=== PATIENT | male | born 1960 ===

== ENCOUNTER 2024-03-14 14:51 | Outpatient (OUT) | payer SELFPAY | END 2024-03-14 14:52 | disposition home or self-care (01) | LOC: PST 14:52 | PROVIDERS: Visit Provider Surgery | DX: Z01.818 Encounter for other preprocedural examination (principal); K21.9 Gastro-esophageal reflux disease without esophagitis; R68.81 Early satiety ==

== ENCOUNTER 2024-03-23 07:45 | Day surgery (SDC) | payer OTHER, SELFPAY ==
--- NOTE | 2024-03-23 | OP_ITS ---
OPERATION DATE: 03/23/2024 PREOPERATIVE DIAGNOSIS: Worsening gastroesophageal reflux disease, early satiety. POSTOPERATIVE DIAGNOSIS: Moderate sized hiatal hernia, as well as mild antral gastritis and distal esophagitis, linear. PROCEDURE: EGD with antral biopsy and biopsy of distal esophagus esophagitis. SURGEON: Sarbjit Granda M.D. ANESTHESIA: Monitored anesthesia care. ESTIMATED BLOOD LOSS: Less than 2 mL. INDICATIONS AND CONSENT: Patient is a 63-year-old male with history of worsening gastroesophageal reflux disease, despite daily proton pump inhibitor. He also has some early satiety. Indications, risks, benefits, alternatives of proceeding with EGD were explained extensively to the patient, including the risks of bleeding, aspiration, esophageal/gastric/duodenal perforation or anesthetic complications. All of his questions were answered. Informed consent was obtained. PROCEDURE: Patient brought to the operating room, placed in the left lateral decubitus position. Monitored anesthesia care was provided. Bite block was placed in the patient?s mouth. Scope was inserted into the oropharynx. Under direct visualization, it was advanced into the esophagus, past the cricopharyngeus, down to the stomach. The stomach was insufflated with air. The pylorus was traversed down to the descending portion of the duodenum. There was no evidence of duodenitis or ulceration. There was no scarring within the pyloric channel. Scope was pulled back into the stomach and retroflexed. There was a moderate size, sliding type hiatal hernia. Within the antrum, there was mild gastritis with erythema. No ulcerations. Biopsy was obtained with pediatric cold biopsy forceps with good hemostasis. There was noted to be some distal esophagitis. The GE junction was noted at approximately 35 cm. There were some linear ulcerations in the distal esophagus. Biopsy was obtained with good hemostasis. The remainder of the esophagus was unremarkable. The scope was then withdrawn. Patient tolerated procedure well, was sent to recovery room in good condition. CC: Patient?s family physician BRITTANY
--- OUTSIDE RECORDS SUMMARY | 2024-03-23 07:52 | XMS_ITS | CCD ---
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 ordering provider. Final result Normal [facility] [place] [facility] History and Physicalon 10-01 HIM IP Note OR Civil Manager Normal [facility] [place] [facility] OPERATIVE REPORTon 8 OPERATIVE REPORT [facility] [address] [place] [address] OPERATIVE REPORTPATIENT NAME: SHARON CHOU : 1960[facility] REC NO: [id number] ROOM:ACCOUNT NO: [id number] ADMIT DATE: 10/01/2017PROVIDER: James Das M.D.DATE OF PROCEDURE: 10/01/2017PREOPERATIVE DIAGNOSES:1. Right closed displaced Colles-type wrist fracture.2. Right closed displaced scapula fracture.POSTOPERATIVE DIAGNOSES:1. Right closed displaced Colles-type wrist fracture.2. Right closed displaced scapula fracture.SURGEON: James Das M.D.FENDER MECHANIC: Dimas Power P.A.-C.SECOND FENDER MECHANIC: Robbin German, P.A-Maulik.ANESTHESIA: General.COMPLICATIONS: None.PROCEDURES:1. Open treatment, right distal radius fracture, extraarticular (05798).2. Closed treatment without manipulation, right scapula fracture.INDICATIONS: The patient is a 57-year-old who was transferred to ia froman outside surgeon with a concern about scapula fracture whether it neededto be treated operatively. After doing thorough evaluation reviewing hisCT scan which I was not available to review prior to his visit, I felt hewould be best treated for the scapula nonoperatively and distal radiuswould be treated operatively with a plate. His mechanism of injury was afall. The patient agreed.NARRATIVE: The patient was taken to the operating room and underwent ageneral anesthetic. Right upper extremity was prepped and draped in normalsterile fashion with a nonsterile tourniquet. Time-out was taken. Consentwas confirmed. Did receive 2 gm of Ancef preoperatively. Started with avolar approach to the wrist. Skin knife followed by electrocautery down tothe flexor carpi radialis tendon sheath. Tendon sheath was opened andopened up the deep musculature, elevating it. Fracture was identified andreduced. Took a Zuniga and Nephew wide 3-hole distal radial locking plates,put that in position, got one nonlocking screw in the metaphyseal bone,compressed plate to bone, and a series of locking screws distally andnonlocking in the shaft. X-rays demonstrated fracture to be near anatomicalignment. Hardware in satisfactory position. The wound was thoroughlyirrigated. Tourniquet was let down. Bleeders were cauterized. Wound wasclosed with 2-0 Monocryl, Prineo, dry dressings, and a cock-up wristsplint. The patient was then awakened and returned to the recovery room ingood condition.POSTOPERATIVE PLAN: He will be nonweightbearing on that side. Drydressings as needed. First postop visit will need to be before he goes onvacation. We will just do a wound check and x-rays, 2 views of the wrist. Also, I will be doing x-rays of the scapula. We will see him about a monthafter he is back from vacation. At that time, 2 additional views of thewrist and we will get two views of his right scapula. He can work himselfout of the sling as he is feeling uncomfortable.JAMES DAS M.D.Dimas Power P.A.-C, assisted throughout the procedure withpositioning, draping, retraction, wound closure, dressing, and splintapplication.Robbin German P.A-C, assisted throughout the procedure with positioning,draping, retraction, wound closure, dressing, and splint application. SUBHA/[email or web address]_TJob#: [id number] Doc#: [id number]:Disclaimer: This report is an unsigned version. If any amendments were made to the final version prior to authentication, it is available in [employer] at [place], [place]. If you wish to review a final copy, please view the document in [employer], or, contact [phone] for a copy. There may be a final document in PDF form. Normal [facility] [place] [facility] Op Noteon 10-01-2017 HIM IP Note OR Civil Manager Normal [facility] [place] [facility] Progress Noteon 10-01-2017 HIM IP Note OR Civil Manager Normal [facility] HIM IP Note OR Civil Manager Normal [facility] [place] [facility] HIM IP Note OR Civil Manager Normal [facility] HIM IP Note OR Civil Manager Normal [facility] [place] [facility] XR WRIST RIGHT LIMITEDon XR WRIST RIGHT LIMITED XR WRIST RIGHT LIMITEDCLINICAL INFORMATION: Right radial fracture.COMPARISON: No prior study.TECHNIQUE: 2 fluoroscopic images of the right wrist were obtained following surgery performed by Dr. Das. The actual fluoroscopy time was 21 seconds.FINDINGS: There is a nondisplaced fracture distal radius, stabilized by metallic plate and screws inserted along the volar aspect of the distal radius.IMPRESSION: Postop appearance right wrist.This report has been created using voice recognition software. It may contain minor errors which are inherent in voice recognition technology.Final report electronically signed by Dr. John Valente on 10/01/2017 2:03 PMInterpreted by:John Valente MDSigned by:John Valente MD10/01/17inal result Normal [facility] ANION GAPon 09-30-2017 Anion gap 13.0 mmol/L Normal 8.0-16.0 [facility] [place] [facility] Comment on above: Result Comment: ANIO N GAP = Sodium -(Chloride + CO2) Performed By: #### C BCWO, BMP, ANION, EGFR1 ####[address] [place] [address] BASIC METABOL PANELon 2017 Calcium 9.4 mg/dL Normal 8.5-10.5 [facility] Comment on above: Performed By: #### C BCWO, BMP, ANION, EGFR1 ####[facility] [address] [place] [address] Chloride 96 mmol/L Low 98-111 [facility] Comment on above: Performed By: #### C BCWO, BMP, ANION, EGFR1 ####[facility] [address] [place] [address] CO2 27 mmol/L Normal 23-33 [facility] Comment on above: Performed By: #### C BCWO, BMP, ANION, EGFR1 ####[address] [place] [address] Creatinine 0.6 mg/dL Normal 0.4-1.2 [facility] [place] [facility] Comment on above: Performed By: #### C BCWO, BMP, ANION, EGFR1 ####[address] [address] Glucose mass conc 96 mg/dL Normal 70-108 [facility] Comment on above: Performed By: #### C BCWO, BMP, ANION, EGFR1 ####[address] [place] [address] Potassium molar conc 4.5 mmol/L Normal 3.5-5.2 [facility] [place] [facility] Comment on above: Performed By: #### C BCWO, BMP, ANION, EGFR1 ####[facility] [address] [place] [address] Sodium 136 mmol/L Normal 135-145 [facility] [place] [facility] Comment on above: Performed By: #### C BCWO, BMP, ANION, EGFR1 ####[facility] [address] [place] [address] Urea nitrogen 18 mg/dL Normal 7-22 [facility] Comment on above: Performed By: #### C BCWO, BMP, ANION, EGFR1 ####[address] [address] CBC WITHOUT DIFFon 8 Erythrocyte distribution width Auto Ratio (RBC) 12.4 % Normal 11.5-14.5 [facility] Comment on above: Performed By: #### C BCWO, BMP, ANION, EGFR1 ####[facility] [employer] [address] [place] [address] Erythrocytes (RBC) 4.62 mill/mm3 Low 4.70-6.[address] [facility] Comment on above: Performed By: #### C BCWO, BMP, ANION, EGFR1 ####[facility] [employer] [address] [place] [address] Hematocrit (HCT) 45.7 % Normal 42.0-52.0 [facility] Comment on above: Performed By: #### C BCWO, BMP, ANION, EGFR1 ####[facility] [employer] [address] [place] [address] Hemoglobin mass conc (Bld) 16.2 gm/dl Normal 14.0-18.0 [facility] Comment on above: Performed By: #### C BCWO, BMP, ANION, EGFR1 ####[facility] [employer] [address] [place] [address] MCH 35.0 pg High 27.0-31.0 [facility] Comment on above: Performed By: #### C BCWO, BMP, ANION, EGFR1 ####[facility] [address] [place] [address] MCHC mass conc (RBC) 35.4 gm/dl Normal 33.0-37.0 [facility] [place] [facility] Comment on above: Performed By: #### C BCWO, BMP, ANION, EGFR1 ####[facility] [address] [place] [address] MCV 99.1 fL High 80.0-94.0 [facility] [place] [facility] Comment on above: Performed By: #### C BCWO, BMP, ANION, EGFR1 ####[facility] [employer] [address] [place] [address] Platelet mean volume (PMV) 9.4 mcm Normal 7.4-10.4 [facility] Comment on above: Performed By: #### C BCWO, BMP, ANION, EGFR1 ####[facility] [employer] [facility] [address] [place] [address] Platelets 179 thou/mm3 Normal 130-400 [facility] [place] [facility] Comment on above: Performed By: #### C BCWO, BMP, ANION, EGFR1 ####[facility] [address] [place] [address] WBC (Leukocytes) 8.2 thou/mm3 Normal 4.8-10.8 [facility] Comment on above: Performed By: #### C BCWO, BMP, ANION, EGFR1 ####[facility] [address] [place] [address] GFR, ESTIMATEDon 09-30-2017 eGFR (MDRD) mL/min/{1.73_m2} Normal [facility] Comment on above: Result Comment: [place] ivan Description GFR, ml/min/1.73 m2 - At increased risk > or = 60 (with chronic kidney disease risk factors) 1 Normal or increased GFR > or = 90 2 Mildly or decreased GFR 60 - 89 3 Moderately decreased GFR 30 - 59 4 Severely decreased GFR 15 - 29 5 Kidney failure <15 (or dialysis)Estimated GFR calculated using abbreviated MDRD formula asrecommended by National Kidney Foundation. Calculation basedupon serum creatinine and adjusted for age, gender & race.Poonam. Internal Med., Vol. 139 (2) pg 137-147. Performed By: #### C BCWO, BMP, ANION, EGFR1 ####[facility] [address] [place] [address] XR CHEST STANDARD TWO VWon 0 09-30-2017 XR CHEST STANDARD TWO VW PROCEDURE: XR CHEST STANDARD TWO VWCLINICAL INFORMATION: Other closed fracture of distal end of right radius, initial encounter, Preop testing, SmokerCOMPARISON: No prior study.TECHNIQUE: PA and lateral views of the chest were obtained.IMPRESSION: 1. Normal heart size.2. Mild blunting of the left lateral posterior costophrenic angles, likely chronic.3. Moderate focal pleural thickening lateral aspect right upper lobe, of uncertain significance, possibly related to prior trauma.4. CT thorax recommended for further evaluation.This report has been created using voice recognition software. It may contain minor errors which are inherent in voice recognition technology.Final report electronically signed by Dr. John Valente on 09/30/2017 4:32 PMInterpreted by:ABDI Durandigned by:John Valente MD09/30/17inal result Normal [facility] Vital Signs Date Time Vital Sign Value Performing Clinician Lizz cardona 02-10-2024 14:53-0400 Blood Pressure Location Sarbjit NILL [facility] 02-10-2024 14:53-0400 Diastolic blood pressure 106 mm[Hg] Sarbjit NILL [facility] 02-10-2024 14:53-0400 Heart rate 76 /min Sarbjit NILL [facility] 02-10-2024 14:53-0400 Respiratory rate 16 /min Sarbjit NILL [facility] 02-10-2024 14:53-0400 Systolic blood pressure 142 mm[Hg] Sarbjit NILL [facility] 09-21-2022 06:30-0500 Diastolic blood pressure 80 mm[Hg] Antonella Mayes DO Work Phone: [facility] Known 09-21-2022 06:30-0500 Heart rate 108 /min Antonella Mayes DO [facility] 09-21-2022 06:30-0500 Respiratory rate 16 /min Antonella Mayes DO Work Phone: [facility] Known 09-21-2022 06:30-0500 SaO2% (BldA) [Mass fraction] 95 % Antonella Mayes DO Work Phone: [facility] Known 09-21-2022 06:30-0500 Systolic blood pressure 132 mm[Hg] Antonella Mayes DO Work Phone: [facility] Known 09-21-2022 00:47-0500 Body height 177.8 cm Antonella Mayes DO Work Phone: [employer] 09-21-2022 00:47-0500 Body mass index (BMI) [Ratio] 24.39 kg/m2 Antonella Mayes DO Work Phone: [facility] Known 09-21-2022 00:47-0500 Body temperature 98.1 [degF] Antonella Mayes DO Work Phone: [facility] Known 09-21-2022 00:47-0500 Body weight 77.11 kg Antonella Mayes DO Work Phone: [facility] Known 04-06-2021 08:08-0400 Diastolic blood pressure 77 mm[Hg] Jose Daniel Logan MD Work Phone: [facility] Work Phone: 04-06-2021 08:08-0400 Heart rate 83 /min Jose Daniel Logan MD Work Phone: [facility] Work Phone: 04-06-2021 08:08-0400 Respiratory rate 18 /min Jose Daniel Logan MD Work Phone: [facility] Work Phone: 04-06-2021 08:08-0400 SaO2% (BldA) [Mass fraction] 95 % Jose Daniel Logan MD Work Phone: [facility] Work Phone: 04-06-2021 08:08-0400 Systolic blood pressure 131 mm[Hg] Jose Daniel Logan MD Work Phone: [facility] Work Phone: 04-06-2021 04:00-0400 Body height 180.3 cm Jose Daniel Logan MD Work Phone: [facility] Work Phone: 04-06-2021 04:00-0400 Body mass index (BMI) [Ratio] 23.71 kg/m2 Jose Daniel Logan MD Work Phone: [employer] Work Phone: 04-06-2021 04:00-0400 Body weight 77.11 kg Jose Daniel Logan MD Work Phone: [facility] [employer] Work Phone: 11-01-2020 16:00-0500 BP Diastolic 78 mm[Hg] Noble Rivera [facility] Work Phone: 11-01-2020 16:00-0500 BP Systolic 136 mm[Hg] Noble Rivera [facility] Work Phone: 11-01-2020 16:00-0500 Pulse (Heart Rate) 54 /min Noble Rivera [facility] Work Phone: 11-01-2020 16:00-0500 Pulse Oximetry 96 % Noblekassidy Rivera [facility] Work Phone: 11-01-2020 16:00-0500 Respiratory Rate 18 /min [facility] Phone: 11-01-2020 13:11-0500 BMI (Body Mass Index) 24.39 kg/m2 [facility] Work Phone: 11-01-2020 13:11-0500 Body Temperature 97.81 [degF] Noble Rivera [facility] Work Phone: 11-01-2020 13:11-0500 Body weight 77.11 kg Noble Rivera [facility] Work Phone: 11-01-2020 13:11-0500 Height 177.8 cm Noble Rivera [facility] Work Phone: Encounters Encounter Date Encounter Type Care Provider Facility Start: 02-10-2024 End: 02-11-2024 ambulatory Sarbjit MOSER Facility:[facility] Start: 02-10-2024 End: 02-10-2024 Patient encounter procedure Sarbjit MOSER [facility] Start: 01-21-2024 End: 01-21-2024 ambulatory FELICIA Ivan FRUALEX Not Available Start: 01-04-2024 ambulatory Sarbjit MOSER Facility:[facility] Start: 12-03-2023 End: 12-03-2023 ambulatory FELICIA Ivan FRUALEX Not Available Start: 09-21-2022 End: 09-21-2022 Emergency department patient visit [facility] Start: 09-21-2022 End: 09-21-2022 Emergency department patient visit Antonella Mayes DO Work Phone: [facility] ED Comment on above: Fall, initial encoun ter (Primary Dx); Dislocation of right shoulder joint, initial encounter Start: 11-05-2021 End: 11-06-2021 ambulatory JAIRON W [facility] Start: 11-05-2021 End: 11-05-2021 Subsequent hospital visit by physician Felicia Sheikh Work Phone: [facility] Laboratory Comment on above: Screening PSA (prost ate specific antigen) Start: 04-06-2021 End: 04-06-2021 Emergency department patient visit Jose Daniel Logan MD Work Phone: [facility] Comment on above: Dislocation of right shoulder joint, initial encounter (Primary Dx) Start: 11-01-2020 End: 11-01-2020 Subsequent hospital visit by physician Noble Rivera Work Phone: [facility] OR Start: 10-26-2020 End: 10-30-2020 Subsequent hospital visit by physician Gio Benedictid19 Pat Screening Schedule [facility] PRE ADMIT Comment on above: Preoperative testing Start: 10-25-2020 End: 10-25-2020 Subsequent hospital visit by physician Felicia [facility] Comment on above: BPH without obstruct ion/lower urinary tract symptoms Start: 10-25-2020 End: 10-25-2020 Subsequent hospital visit by physician Felicia [facility] Comment on above: Screening PSA (prost ate specific antigen) Start: 12-04-2017 End: 12-05-2017 Ambulatory JAMES DAS Facility:[facility] Start: 11-06-2017 End: 11-07-[address] [facility] Start: 10-01-2017 End: 10-01-2017 Ambulatory JAMES Vargas [facility] Start: 09-30-2017 End: 10-01-2017 Ambulatory JAMES Vargas [facility] Start: 09-28-2017 Ambulatory JAMES SILVER MACKEY Facility:[facility] Procedures Date Procedure Procedure Detail Performing Clinician Start: 09-21-2022 Radex shoulder 1 view Antonella Mayes DO Work Phone: Start: 09-21-2022 Radex shoulder complete minimum 2 views Antonella Mayes DO Work Phone: Start: 04-06-2021 ORTHOPEDIC INJURY TREATMENT Jose Daniel vega MD Work Phone: Start: 04-06-2021 Radex shoulder complete minimum 2 views Jose Daniel Logan MD Work Phone: Start: 04-06-2021 Radex shoulder complete minimum 2 views Jose Daniel Logan MD Work Phone: Start: 11-01-2020 Colonoscopy study Noble Rivera Work Phone: Start: 11-01-2020 Colonoscopy Felicia Sheikh Work Phone: Start: 11-01-2020 Colonoscopy Sarbjit MOSER Start: 10-26-2020 COVID-19 Aj Ayala Work Phone: Start: 10-26-2020 [object Object] Felicia Sheikh Comment on above: The Georges ECLIA assay is used. Results obtained with different assay methods cannot be used interchangeably. Start: 10-25-2020 PSA screening Jairon North Work Phone: Start: 10-25-2020 Urnls dip stick/tablet reagent auto microscopy Jairon North Work Phone: Start: 08-23-2018 Esophagogastroduodenoscopy Sarbjit MOSER Start: 10-01-2017 FLUORO FOR SURGICAL PROCEDURES JAMES AC Start: 10-01-2017 Radex wrist 2 views JAMES DAS Start: 10-01-2017 DISCHARGE PATIENT JAMES DAS Start: 10-01-2017 Continuous pulse oximetry JAMES DAS Start: 10-01-2017 ENCOURAGE DEEP BREATHING AND COUGHING JAMES DAS Start: 10-01-2017 INITIATE OXYGEN THERAPY PROTOCOL JAMES DAS Start: 10-01-2017 NOTIFY PHYSICIAN (SPECIFY) JAMES DAS Start: 10-01-2017 VITAL SIGNS JAMES DAS Start: 09-30-2017 EKG 12-LEAD JAMES DAS Start: 09-30-2017 ANION GAP AJMES DAS Start: 09-30-2017 BASIC METABOLIC PANEL JAMES DAS Start: 09-30-2017 CBC JAMES DAS Start: 09-30-2017 GLOMERULAR FILTRATION RATE, ESTIMATED JAMES DAS Start: 09-30-2017 Radiologic exam chest 2 views JAMSE SILVER Arthroscopy of shoulder Jed dickinsonjemal SHANTI Closed fracture of r ight wrist (disorder) Sarbjit Promodity History of surgical procedure on cervical spine Sarbjit o9 SolutionsJemal Plan of Treatment Date Care Activity Detail Author Start: 11-01-2030 Screening for malign ant neoplasm of colon [facility] Start: 03-25-2026 DTaP/Tdap/Td vaccine (2 - Td or Tdap) DTaP/Tdap/Td vaccine (2 - Td or Tdap) [facility] Start: 03-25-2026 DTaP/Tdap/Td vaccine (2 - Td) DTaP/Tdap/Td vaccine (2 - Td) [place] Start: 12-12-2024 Screening for malign ant neoplasm of colon Colon cancer screen colonoscopy [place], [place] Start: 11-07-2022 End: 11-07-2022 Patient encounter procedure 11/07/2022 Office Visit Urology [facility] Start: 04-21-2022 Influenza vaccination Flu vaccine (# 1) [facility] Start: 11-07-2021 End: 11-07-2021 Patient encounter procedure [facility] Start: 07-23-2021 Lipid panel [facility] Start: 05-22-2021 Influenza vaccination Flu vaccine (# 1) [facility] Start: 11-13-2020 End: 11-13-2020 Office Visit 11/13/2020 Office Visit General Surgery Noble Rivera MD [address] [place] [address] [address] [place] [address] [facility] GENERAL SURGERY Part [facility] Start: 11-07-2020 End: 11-07-2020 Office Visit 11/07/2020 Office Visit Urology John Pruitt MD [address], [address] [place] [address] [facility] Start: 11-01-2020 End: 11-01-2020 Hospital Encounter [facility] [place] Comment on above: COLORECTAL CANCER SC REENING, NOT HIGH RISK Start: 10-26-2020 End: 10-26-2020 Appointment 10/26/2020 Appointment Pre-Admission Testing [facility] PRE ADMIT Start: 05-22-2020 Influenza vaccination Flu vaccine (# 1) [place] Start: 03-09-2018 Diabetes screen Diabetes screen [place], [place] Start: 2009 Shingles Vaccine (1 of 2) Shingles Vaccine (1 of 2) [facility] Start: 2004 Screening for malign ant neoplasm of colon [facility] Start: 1977 Hepatitis C screening Hepatitis C sc reen [facility] Start: 1974 HIV screening HIV screen [facility] Start: 1971 COVID-19 Vaccine (1) COVID-19 Vaccin e (1) [facility] Work Phone: Start: 1971 Depression Screen Depression Screen [facility] Start: 1965 Pneumococcal 0-64 ye ars Vaccine (1 - PCV) Pneumococcal 0-64 years Vaccine (1 - PCV) SILVINO CONRADGARCIA [facility] [email or web address] Start: 1965 Pneumococcal 0-64 ye ars Vaccine (1 of 1 - PPSV23) Pneumococcal 0-64 years Vaccine (1 of 1 - PPSV23) [place] Start: 1965 Pneumococcal 0-64 ye ars Vaccine (1 of 2 - PPSV23) Pneumococcal 0-64 years Vaccine (1 of 2 - PPSV23) [facility] [employer] Start: 1964 COVID-19 Vaccine (1) COVID-19 Vaccin e (1) [facility] [employer] Start: 1959 Hepatitis C screening Hepatitis C sc reen [facility] [employer] End: 10-25-2020 Culture, Urine Culture, Urine Microbiology Routine BPH without obstruction/lower urinary tract symptoms 1 Occurrences starting 10/25/2020 until 10/25/2020 [place] Comment on above: 1 Occurrences starti ng 10/25/2020 until 10/25/2020 Culture, Urine Culture, Urine Microbiology Routine BPH without obstruction/lower urinary tract symptoms 10/25/2020 11:40 AM EST [place] End: 11-01-2020 POCT glucose POCT glucose Point of Care Testing STAT One Time for 1 Occurrences starting 11/01/2020 until 11/01/2020 [employer] Phone: Comment on above: One Time for 1 Occur rences starting 11/01/2020 until 11/01/2020 End: 11-01-2020 Protime-INR Protime-INR Lab STAT One Time for 1 Occurrences starting 11/01/2020 until 11/01/[address] [facility]: Comment on above: One Time for 1 Occur rences starting 11/01/2020 until 11/01/2020 End: 11-05-2021 PSA screening [facility] Phone: Comment on above: 1 Occurrences starti ng 11/05/2021 until 11/05/2021 Surgical Pathology Surgical Path ology Lab Routine Release Upon Ordering for 1 Occurrences starting 11/01/2020 [facility]: Comment on above: Release Upon Orderin g for 1 Occurrences starting 11/01/2020 End: 11-01-2020 Urine Urine Lab STAT One Time for 1 Occurrences starting 11/01/2020 until 11/01/2020 [facility] Work Phone: Comment on above: One Time for 1 Occur rences starting 11/01/2020 until 11/01/2020 XR SHOULDER RIGHT 1 VW XR SHOULD ER RIGHT 1 VW Imaging STAT 09/21/2022 4:55 AM EST [facility] Work Phone: Immunizations Immunization Date Immunization Notes Care Provider Fa cility 12-03-2023 influenza virus vaccine, unspecified formulation Sarbjit MOSER [facility] 08-29-2022 SARS-CoV-2 (COVID-19 ) [id number] Sarbjit MOSER [facility] 10-07-2021 influenza, injectabl e, quadrivalent, preservative free Antonella Mayes DO Work Phone: [facility] 10-03-2021 SARS-CoV-2 mRNA (shamfmxwsyg-[id number]-wbvyd se) vaccine Srabjit MOSER [facility] 11-26-2020 SARS-CoV-2 (COVID-19 ) Ad26 vaccine, recombinant Sarbjit SHANTI [facility] 03-25-2016 tetanus toxoid, redu frieda diphtheria toxoid, and acellular pertussis vaccine, adsorbed [facility] Payers Date Payer Category Payer Private Health Insurance [id number] 2020 Unknown [id number] 2017 Unknown 2017 Unknown [id number] 1959 Unknown [id number] 1959 Unknown [id number] 1959 Unknown [id number] 1959 Unknown [id number] 1959 Unknown [id number] Social History Date Type Detail Facility Start: 09-26-2017 End: 10-25-2020 Tobacco smoking status NHIS Current every day smoker [place], [place] History of tobacco use Cigarette Smoker [place] Start: 09-26-2017 End: 10-25-2020 Cigarettes smoked current (pack per day) - Reported [place] Start: 09-26-2017 End: 10-25-2020 Tobacco use and exposure Never used [place] Start: 10-25-2020 End: 11-07-2021 Alcohol intake Current drinker of alcohol (finding) [place] Start: 03-25-2016 Alcohol Comment 5 days a week [place], [place] Start: 1960 Sex Assigned At Not on file [place] Start: 11-01-2020 Alcohol Comment 5 days a week, 3-8 beers/day [facility] [employer] Work Phone: Exposure to SARS-CoV -2 (event) Not sure [facility] Work Phone: Start: 02-10-2024 Tobacco smoking status Ex-smoker (fi nding) [facility] Tobacco smoking status Never [facility] Sex Assigned At Male [facility] Medical Equipment Procedure Code Equipment Code Equipment Origin al Text Equipment Identifier Dates Plate Wrist Dist l Lk Wd Vdr Rt 62mm [id number] Start: 10-01-2017 Screw Cortx Slft p Non Lk 3.5x14mm [id number] Start: 10-01-2017 Screw Cortx Slft p Non Lk 3.5x12mm [id number] Start: 10-01-2017 Screw Slftp Lk 2.5x22mm [id number] Start: 10-01-2017 Screw Cortx Slft p Lk 2.5x18mm [id number] Start: 10-01-2017 Screw Cortx Slft p Lk 2.5x20mm [id number] Start: 10-01-2017 Functional Status Date Assessment Result Facility 02-10-2024 Functional Status N/A [facility] Clinical Note 02-10-2024 Note Date & Type Note Facility 02-10-2024 Note Chief Complaint consultation for GERD HPI Staff 63 year old male presents on consultation from Felicia Sheikh for GERD. Reports long standing history of heartburn and indigestion. Reports early satiety, bloating and coughing up foam for several months. Denies nausea or vomiting. Denies weight loss. Used Omeprazole 20 mg daily for approximately 9-10 years along with use of Tums. Omeprazole was changed to Protonix 40mg daily on 12/02. Reports minimal improvement in symptoms. EGD completed 08/2018- unremarkable. History of Present Illness 63 yo male with chronic GERD, referred for persistent symptoms. patient reports frequent postprandial heartburn, no dysphagia, some early satiety, no wt loss; occasional nausea, no emesis; no bowel changes, some regurgitation; last EGD 2018 wnl;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
[2024-03-23 08:02] VITALS: BP 167/111; PULSE 105; TEMP 36.3; O2SAT 97; BMI 28.0
[2024-03-23] MEDS: LACTATED RINGER'S SOLUTION 1,000 ML 50 ML IV (08:10)
[2024-03-23 09:56] VITALS: BP 122/87; PULSE 96; TEMP 36.8; O2SAT 96
[2024-03-23 10:10] VITALS: BP 148/97; PULSE 84; O2SAT 96
[2024-03-23 10:25] VITALS: BP 154/92; PULSE 74; O2SAT 97
== END 2024-03-23 10:29 | disposition home or self-care (01) ==
PROVIDERS: Visit Provider Surgery
PROC: (CPT 00731; principal; 2024-03-23 09:05)
DX: K21.00 Gastro-esophageal reflux disease with esophagitis, without bleeding (principal); R68.81 Early satiety; K44.9 Diaphragmatic hernia without obstruction or gangrene; K29.70 Gastritis, unspecified, without bleeding; K31.89 Other diseases of stomach and duodenum; R12 Heartburn; Z87.891 Personal history of nicotine dependence
CPT/HCPCS: 00731; 43239; 88305; J2250; J2704